=== PATIENT | male | born 2000 | race Two or more races ===

== ENCOUNTER → 2023-05-22 | Emergency (ER) | payer BC ==
[~2023-05-22] VITALS: Ht 172.7 cm; Wt 82.7 kg
[~2023-05-22] MED LIST: AMOX-419 PO; LIDOCAINE 1%/EPI 1:100,000 inj. 10 ML multi-dose vial IJ ONE; amox tr/potassium clavulanate 875/125mg TAB PO ONE; bacitracin 15gm ointment TP ONE; ondansetron 4mg rapidly disintigrating tab PO ONE
[2023-05-22 18:32] VITALS: TEMP 98.5
[2023-05-22 23:26] VITALS: BP 124/68; PULSE 72; RESP 16; O2SAT 100
== END | disposition home or self-care (01) ==
LOC: ER 18:11
DX: S51.812A Laceration without foreign body of left forearm, initial encounter (principal); W54.0XXA Bitten by dog, initial encounter; Y93.89 Activity, other specified; Y92.89 Other specified places as the place of occurrence of the external cause; Y99.8 Other external cause status
CPT/HCPCS: 12001; 99283; A6449